=== PATIENT | male | born 1950 | race Caucasian/White ===

== ENCOUNTER 2020-08-30 05:02 | Emergency (ER) | payer OTHER, MEDICARE, SELFPAY ==
[2020-08-30 05:03] VITALS: BP 125/63; PULSE 55; RESP 15; TEMP 36.6; O2SAT 96; BMI 31.0
--- NOTE | 2020-08-30 05:19 | CT_ITS ---
HISTORY: LIGHTHEADED AND FELL,DENIES LOC,HEAD AND POSTERIOR NECK PAINHX:HTN,DIABETES ADDITIONAL HISTORY: None provided. COMPARISON: None EXAMINATION/TECHNIQUE: CT Head or Brain W/O Contrast Injection. Axial, coronal and sagittal images. Number of images including paperwork: 251. A radiation dose optimization technique was used for this scan. FINDINGS: BRAIN: No acute hemorrhage or mass. No definite acute infarct; MRI more sensitive. White matter hypodensity is nonspecific but most commonly seen with chronic ischemic changes. Generalized atrophy. VENTRICULAR SYSTEM: No hydrocephalus. PARANASAL SINUSES AND MASTOIDS: No air-fluid level in the imaged extent. Mucosal thickening with small calcification in the left maxillary sinus. ORBITS: Unremarkable imaged extent. SKELETON AND SOFT TISSUES: Calvarium intact. ASPECTS score: Not applicable. CT/Brain/Head without Contrast IMPRESSION: No acute intracranial abnormality. Chronic involutional and white matter changes. Individualized dose optimization techniques were used for this CT. at 0554 Reported and signed by: Jazz Mills MD Electronically Signed: Jazz Mills MD at 5:54 EST Tel , Service support ,
--- NOTE | 2020-08-30 05:19 | RAD_ITS ---
HISTORY: Fall, right shoulder pain. ADDITIONAL HISTORY: None provided. EXAMINATION/TECHNIQUE: XR Shoulder Min 2 Views Right Number of images including paperwork: 4 COMPARISON: None FINDINGS: BONES: No acute fracture. JOINTS: No subluxation. Moderate to severe degenerative changes of the glenohumeral and acromioclavicular joints. SOFT TISSUES: No distinct foreign body. RAD/Shoulder min 2 Views IMPRESSION: Degenerative changes without acute osseous abnormality. at 0603 Reported and signed by: Jazz Mills MD Electronically Signed: Jazz Mills MD at 6:03 EST Tel , Service support ,
--- NOTE | 2020-08-30 05:19 | CT_ITS ---
HISTORY: LIGHTHEADED AND FELL,DENIES LOC,HEAD AND POSTERIOR NECK PAINHX:HTN,DIABETES ADDITIONAL HISTORY: None provided COMPARISON: None TECHNIQUE: Noncontrast CT images of the cervical spine. 2D images were reviewed to aid in assessment of the cervical spine. A radiation dose optimization technique was used for this scan. Number of images including paperwork: 403 FINDINGS: BONES: No acute fracture. No suspicious bone lesion. VERTEBRAL ALIGNMENT: No traumatic subluxation. Loss of normal cervical lordosis. DISCS AND JOINTS: Multilevel moderate to severe discogenic degenerative changes with at least partial disc space fusion at C3-4 and C4-5. Facet arthropathy. SPINAL CANAL AND FORAMINA: No critical canal stenosis. SOFT TISSUES: No prevertebral soft tissue swelling. No pathologic-appearing cervical adenopathy. Vascular calcifications. LUNG APICES: Unremarkable. MASTOIDS: Minimal left mastoid fluid partially visible. CT/Spine Cervical without Contras IMPRESSION: No acute osseous abnormality. Cervical spondylosis. Individualized dose optimization techniques were used for this CT. at 0557 Reported and signed by: Jazz Mills MD Electronically Signed: Jazz Mills MD at 5:57 EST Tel , Service support ,
--- NOTE | 2020-08-30 05:20 | ED.DCSUM_ITS ---
- ER Visit Summary Date of Service: 08/30/20 Chief Complaint: Fall History of Present Illness: The patient is a 69 M who presents after a fall that occurred tonight. Patient states he got up to use the restroom when he fell. Patient thinks he lost his balance. Patient denies any loss of consciousness. Patient states he injured his right shoulder, neck, and the back of his head. Patient admits to some tingling in his right upper extremity. Patient denies any weakness. Patient states the pain is worse with certain movements. Patient describes the pain as sharp. Patient denies any other injuries. Physical Examination: Vital signs are stable. Patient is afebrile. Patient is in no acute distress. Oral mucosa is pink and moist. Neck is supple. Trachea is midline. There is tenderness over the cervical spine and right paraspinal muscles. There is no bony crepitance or step-off. There is also tenderness over the occiput. There is no bony crepitance or step-off of the scalp. Heart was regular rate and rhythm. There is a grade 3/6 systolic murmur. Lungs are clear and equal bilaterally. Abdomen is soft and nontender. Musculoskeletal exam reveals tenderness over the right shoulder. There is no deformity noted. Range of motion was limited in all motion secondary to pain. Strength is 5/5 bilaterally upper extremities. Sensation was intact to light touch in the radial, median, and ulnar areas. Radial pulses are equal bilaterally. Test Results: CT scan of the brain was obtained. There is no acute intracranial abnormality. CT scan of the cervical spine was obtained. There are no acute fractures. X-rays of the right shoulder were obtained. There are degenerative changes but no acute fracture. These were all interpreted by the radiologist and reviewed by myself. Emergency Department Course and Treatment: Patient was advised of his findings. Patient was instructed to use ice to the areas. Patient was instructed to follow-up with his primary care physician in 5 to 7 days. Patient was instructed to take Tylenol or ibuprofen as needed for pain. Patient understood and was agreeable with the plan. All questions were answered. Disposition: Discharge home Impression: 1. Right shoulder contusion 2. Acute cervical strain 3. Closed head injury This note was generated with [employer] software. It may contain incorrect words, spelling, and punctuation that were not noted in review of the chart prior to signing ED Disposition - Plan for ED Patient: Disposition: Home or Assisted Living Diagnosis: Contusion of right shoulder, initial encounter, Closed head injury, Acute cervical myofascial strain Instructions: ED Head Injury Adult, ED EXTREMITY CONTUSION Upper, ED Sprain Strain Neck Referrals: [facility] [Primary Care Provider] - 3-5 Days
[2020-08-30 06:40] VITALS: BP 127/75; PULSE 61; RESP 15; O2SAT 99
== END 2020-08-30 06:50 | disposition home or self-care (01) ==
PROVIDERS: Emergency Provider Emergency Medicine
DX: S09.90XA Unspecified injury of head, initial encounter (principal); S16.1XXA Strain of muscle, fascia and tendon at neck level, initial encounter; S40.011A Contusion of right shoulder, initial encounter; W18.12XA Fall from or off toilet with subsequent striking against object, initial encounter; Y93.9 Activity, unspecified; Y92.002 Bathroom of unspecified non-institutional (private) residence as the place of occurrence of the external cause; Y99.9 Unspecified external cause status; E11.9 Type 2 diabetes mellitus without complications; I10 Essential (primary) hypertension; R01.1 Cardiac murmur, unspecified
CPT/HCPCS: 70450; 72125; 73030; 99282